=== PATIENT | female | born 1970 | race Caucasian/White ===

== ENCOUNTER 2020-12-13 10:37 | Outpatient (CLI) | payer OTHER | END 2020-12-13 10:38 | disposition home or self-care (01) | LOC: BICRAD 10:37 | PROVIDERS: ATTEND Family Medicine | DX: M25.561 Pain in right knee (principal); M25.461 Effusion, right knee ==

== ENCOUNTER 2020-12-18 08:16 | Outpatient (CLI) | payer OTHER | END 2020-12-18 08:17 | disposition home or self-care (01) | LOC: BICMAMMO 08:16 | PROVIDERS: ATTEND Family Medicine | DX: Z13.820 Encounter for screening for osteoporosis (principal); Z78.0 Asymptomatic menopausal state; M85.852 Other specified disorders of bone density and structure, left thigh | CPT/HCPCS: 77080 ==